=== PATIENT | male | born 1990 | race Hispanic/Latino ===

== ENCOUNTER 2017-12-31 16:59 | Emergency (ER) | payer BC ==
[2017-12-31 17:08] VITALS: BP 115/68; PULSE 85; RESP 16; O2SAT 99
[2017-12-31] MEDS ORDERED: Dexamethasone 4 mg/1 ml IM STA (17:18)
--- NOTE | 2017-12-31 17:25 | ED PDOC ---
HPI: Influenza Chief Complaint (Provider): Fever History Per: Patient Exam Limitations: no limitations Have you had recent travel within the past 21 days to any of: No Onset/Duration Of Symptoms: Days (2x) Symptoms include: fever, headache, bodyaches, sore throat Additional complaint(s):: 27 year old male with no pertinent past medical history presents to the ED with complaints of a fever that started 2x days ago. Patient states that he was seen at the [facility] clinic earlier today for strep throat/ flu-like symptoms, and was sent to the ED for having a fever of 103 F. Patient reports having a headache, bodyaches, and throat pain. Patient can tolerate liquid and solid food. Patient denies having chest pain, shortness of breath and recent traveling. Patient took tylenol prior to arrival. PMD: Migel Avila MD <Cherelle Webber - Last Filed: 12/31/17 19:00> <Madelaine Cunha - Last Filed: 12/31/17 22:46> Time Seen by Provider: 12/31/17 17:07 Chief Complaint: Flu-like Symptoms Past Medical History Reviewed: Historical Data, Nursing Documentation, Vital Signs Vital Signs: Last Vital Signs Temp 101.1 F H 12/31/17 17:04 Pulse 85 12/31/17 17:04 Resp 16 12/31/17 17:04 BP 115/68 12/31/17 17:04 Pulse Ox 99 12/31/17 17:04 - Medical History PMH: No Chronic Diseases - Surgical History Surgical History: No Surg Hx - Family History Family History: States: No Known Family Hx - Social History Current smoker - smoking cessation education provided: No Alcohol: Social Drugs: Denies <Cherelle Webber - Last Filed: 12/31/17 19:00> Vital Signs: Last Vital Signs Temp 99.4 F 12/31/17 18:50 Pulse 85 12/31/17 17:04 Resp 16 12/31/17 17:04 BP 115/68 12/31/17 17:04 Pulse Ox 99 12/31/17 19:50 <Madelaine Cunha - Last Filed: 12/31/17 22:46> - Home Medications Home Medications: Ambulatory Orders Medication Instructions Recorded Amoxicillin/Clavulanate [Augmentin 1 tab PO BID #14 tab 12/31/17 875 MG-125 MG] - Allergies Allergies/Adverse Reactions: Allergies Allergy/AdvReac Type Severity Reaction Status Date / Time No Known Allergies Allergy Verified 12/31/17 17:04 Review of Systems ROS Statement: Except As Marked, All Systems Reviewed And Found Negative Constitutional: Positive for: Fever, Other (bodyaches) ENT: Positive for: Throat Pain Cardiovascular: Negative for: Chest Pain Respiratory: Negative for: Shortness of Breath Neurological: Positive for: Headache <Cherelle Webber - Last Filed: 12/31/17 19:00> Physical Exam - Reviewed Nursing Documentation Reviewed: Yes Vital Signs Reviewed: Yes - Physical Exam Appears: Positive for: Well, Non-toxic, No Acute Distress Head Exam: Positive for: ATRAUMATIC, NORMOCEPHALIC Skin: Positive for: Normal Color, Warm, Dry ENT: Positive for: Tonsillar Exudate (bilateral), Tonsillar Swelling (bilateral), Other (no visualized peritonsillar abscess. uvular airway patent.) Cardiovascular/Chest: Positive for: Regular Rate, Rhythm Respiratory: Positive for: Normal Breath Sounds Gastrointestinal/Abdominal: Positive for: Normal Exam. Negative for: Tenderness Extremity: Positive for: Normal ROM Lymphatic: Positive for: Adenopathy (bilateral anterior cervical lymphadenopathy) Neurologic/Psych: Positive for: Alert, Oriented (3x) <ChristianoCherelle leon - Last Filed: 12/31/17 19:00> Medical Decision Making Medical Decision Makin:07 Initial impression: 27 year old male with a fever, temp of 101.1 noted, patient states he took 500 mg PO tylenol just prior to arrival Initial plan: * motrin tab 600 mg PO * decadron inj 8 mg IM * throat culture * augmentin initial dose 6:03 pm: temp is 102.4 noted, additional 325 mg PO. CBC, CMP ordered along with fluids bolus. 7:00 pm: Repeat temp is 99.4. Patient states he feels much better. Patient given prescriptions for Augmentin. Fever control instructions provided. Advise rest, fluids and PMD follow-up in 2-3 days. Patient is aware he can return any time to ED if acutely worse. Scribe Attestation: Documented by Lizette Sims, acting as a scribe for Cherelle Webber PA-C. Provider Scribe Attestation: All medical record entries made by the Scribe were at my direction and personally dictated by me. I have reviewed the chart and agree that the record accurately reflects my personal performance of the history, physical exam, medical decision making, and the department course for this patient. I have also personally directed, reviewed, and agree with the discharge instructions and disposition. <Cherelle Webber - Last Filed: 12/31/17 19:00> - Laboratory Results Result Diagrams: 12/31/17 18:20 12/31/17 18:20 - ECG O2 Sat by Pulse Oximetry: 99 (RA) Pulse Ox Interpretation: Normal <Cherelle Webber - Last Filed: 12/31/17 19:00> - Laboratory Results Result Diagrams: 12/31/17 18:20 12/31/17 18:20 <Madelaine Cunha - Last Filed: 12/31/17 22:46> Disposition - Patient ED Disposition Is Patient to be Admitted: No Counseled Patient/Family Regarding: Studies Performed, Diagnosis, Need For Followup, Rx Given - Disposition Disposition: Routine/Home Disposition Time: 19:01 <Cherelle Webber - Last Filed: 12/31/17 19:00> <Madelaine Cunha - Last Filed: 12/31/17 22:46> - Clinical Impression Clinical Impression: Tonsillitis - Disposition Referrals: [facility] [place] [Outside] Condition: STABLE Additional Instructions: Alternate 650 mg (2 325 mg tabs) every 4 hrs and 3 ibuprofen tabs every 6 hrs for fever control. He gets appendix as directed starting tomorrow. Drink plenty of fluids and rest. Follow-up with primary doctor on Tuesday or return to ED any time if acutely worse. Prescriptions: Amoxicillin/Clavulanate [Augmentin 875 MG-125 MG] 1 tab PO BID #14 tab Instructions: Sore Throat, Adult (DC) Forms: [facility] ([place]), [facility] ED School/Work Excuse Results - Lab Results Lab Results: 12/31/17 12/31/17 18:20 18:20 WBC 8.4 RBC 5.06 Hgb 14.7 Hct 43.1 MCV 85.3 MCH 29.1 MCHC 34.1 RDW 12.8 Plt Count 143 MPV 7.1 L Neut % (Auto) 84.3 H Lymph % (Auto) 7.0 L [place] % (Auto) 8.5 Eos % (Auto) 0.0 Baso % (Auto) 0.2 Neut # (Auto) 7.0 Lymph # (Auto) 0.6 L [place] # (Auto) 0.7 Eos # (Auto) 0.0 Baso # (Auto) 0.0 Neutrophils % (Manual) Pending Lymphocytes % (Manual) Pending Monocytes % (Manual) Pending Platelet Estimate Pending Sodium 139 Potassium 4.5 Chloride 104 Carbon Dioxide 28 Anion Gap 12 BUN 15 Creatinine 1.3 Est GFR ( Amer) > 60 Est GFR (Non-Af Amer) > 60 Random Glucose 122 H Calcium 9.1 Total Bilirubin 1.4 H AST 25 ALT 41 Alkaline Phosphatase 60 Total Protein 7.5 Albumin 4.1 Globulin 3.4 Albumin/Globulin Ratio 1.2 <Cherelle Webber - Last Filed: 12/31/17 19:00> - Lab Results Lab Results: 12/31/17 12/31/17 18:20 18:20 WBC 8.4 RBC 5.06 Hgb 14.7 Hct 43.1 MCV 85.3 MCH 29.1 MCHC 34.1 RDW 12.8 Plt Count 143 MPV 7.1 L Neut % (Auto) 84.3 H Lymph % (Auto) 7.0 L [place] % (Auto) 8.5 Eos % (Auto) 0.0 Baso % (Auto) 0.2 Neut # (Auto) 7.0 Lymph # (Auto) 0.6 L [place] # (Auto) 0.7 Eos # (Auto) 0.0 Baso # (Auto) 0.0 Neutrophils % (Manual) 86 H Lymphocytes % (Manual) 7 L Monocytes % (Manual) 6 Basophils % (Manual) 1 Platelet Estimate Normal Sodium 139 Potassium 4.5 Chloride 104 Carbon Dioxide 28 Anion Gap 12 BUN 15 Creatinine 1.3 Est GFR ( Amer) > 60 Est GFR (Non-Af Amer) > 60 Random Glucose 122 H Calcium 9.1 Total Bilirubin 1.4 H AST 25 ALT 41 Alkaline Phosphatase 60 Total Protein 7.5 Albumin 4.1 Globulin 3.4 Albumin/Globulin Ratio 1.2 <Madelaine Cunha - Last Filed: 12/31/17 22:46> Attending/Attestation - Attestation I have personally seen and examined this patient.: No I have reviewed all pertinent clinical information: Yes <Madelaine Cunha - Last Filed: 12/31/17 22:46>
[2017-12-31] MEDS ORDERED: Amoxicillin-Clav 875-125 mg Tab PO STA (17:29)
[2017-12-31] MEDS ORDERED: Amoxicillin-Clav 875-125 mg Tab PO ONE (17:36)
[2017-12-31] MEDS ORDERED: Sodium Chloride 0.9% 1,000 ML IV STA (18:11)
[2017-12-31 18:27] LABS: BASO % 0.2 % (0.0-2.0); HEMOGLOBIN 14.7 g/dL (12.0-18.0); LYMPH # 0.6 K/uL (1.0-4.3); MEAN CELL VOLUME 85.3 fl (80.0-94.0); MEAN CORPUSCULAR HEMOGLOBIN 29.1 pg (27.0-31.0); MEAN CORPUSCULAR HGB CONC 34.1 g/dL (33.0-37.0); MEAN PLATELET VOLUME 7.1 fl (7.2-11.7); MONO # 0.7 K/uL (0.0-0.8); MONO % 8.5 % (0.0-10.0); NEUT % 84.3 % (50.0-75.0); PLATELET COUNT 143 K/uL (130-400); RBC 5.06 Mil/uL (4.40-5.90); RED CELL DISTRIBUTION WIDTH 12.8 % (11.5-14.5); WHITE BLOOD COUNT 8.4 K/uL (4.8-10.8)
[2017-12-31 18:37] LABS: ALB/GLOB RATIO 1.2 (1.0-2.1); ALBUMIN 4.1 g/dL (3.5-5.0); ALT/SGPT 41 U/L (21-72); AST/SGOT 25 U/L (17-59); BLOOD UREA NITROGEN 15 mg/dl (9-20); CALCIUM 9.1 mg/dL (8.4-10.2); GFR NON-AFRICAN AMERICAN > 60
[2017-12-31 18:50] VITALS: TEMP 99.4
[2017-12-31 19:32] LABS: BASOPHIL 1 % (0-2); LYMPHOCYTE 7 % (20-50); MONOCYTE 6 % (0-10); NEUTROPHIL 86 % (42-75); PLATELET ESTIMATE NORMAL (NORMAL); TOTAL CELLS COUNTED 100
== END 2017-12-31 19:07 | disposition home or self-care (01) ==
LOC: H.ER 16:59
DX: J03.90 Acute tonsillitis, unspecified (principal); Z79.899 Other long term (current) drug therapy
CPT/HCPCS: 80053; 85025; 87040; 87070; 96372; 99284; J1100; J7030